=== PATIENT | female | born 1990 | race Two or more races ===

== ENCOUNTER 2020-11-11 01:30 | Emergency (ER) | payer MEDICAID, OTHER ==
[~2020-11-11] VITALS: Ht 154.9 cm; Wt 97.1 kg
[~2020-11-11 01:30] MED LIST: BENZ2AMP3 PO; RISP2TAB5 PO
--- NOTE | 2020-11-11 02:10 | NUR ---
Dr. Holley at bedside for MSE.
--- NOTE | 2020-11-11 02:32 | NUR ---
Xray at bedside.
[2020-11-11] MEDS ORDERED: ONDANSETRON ODT 4 MG TAB.RAPDIS SL ONE ×2 (02:45→03:45)
[2020-11-11] MEDS ORDERED: FAMOTIDINE 20 MG TABLET PO ONE (02:45)
[2020-11-11 02:52] LABS: BASOPHILS # (AUTO) 0.1 K/uL (0.0-8.0); BASOPHILS % (AUTO) 0.9 % (0.0-2.0); EOSINOPHILS # (AUTO) 0.4 K/uL (0.0-0.7); EOSINOPHILS % (AUTO) 3.9 % (0.0-7.0); HEMATOCRIT 44.4 % (31.2-41.9); LYMPHOCYTES # (AUTO) 4.1 K/uL (20.0-40.0); LYMPHOCYTES % (AUTO) 42.5 % (20.5-51.5); MEAN CORPUSCULAR HEMOGLOBIN 27.9 uug (24.7-32.8); MEAN CORPUSCULAR HGB CONC 34 g/dL (32.3-35.6); MEAN CORPUSCULAR VOLUME 82.5 fL (75.5-95.3); MONOCYTES % (AUTO) 10.2 % (0.0-11.0); NEUTROPHILS # (AUTO) 4.1 K/uL (1.8-8.9); NEUTROPHILS % (AUTO) 42.5 % (38.5-71.5); PLATELET COUNT (AUTO) 379 K/uL (179-408); RED BLOOD CELL COUNT(AUTO) 5.38 MIL/uL (3.63-4.92); WHITE BLOOD COUNT (AUTO) 9.6 K/uL (3.8-11.8)
[2020-11-11] MEDS ORDERED: ONDANSETRON ODT 4 MG TAB.RAPDIS ONE ×2 (02:52→03:42)
[2020-11-11] MEDS ORDERED: FAMOTIDINE 20 MG TABLET ONE (02:52)
[2020-11-11 02:54] LABS: CREATININE 1.1 mg/dL (0.6-1.3); POTASSIUM 3.3 mmol/L (3.5-5.1)
[2020-11-11 02:59] LABS: *OCCULT BLOOD STOOL NEGATIVE (NEGATIVE)
[2020-11-11 03:00] LABS: BILIRUBIN,DIRECT 0.1 mg/dL (0.0-0.2); BILIRUBIN,TOTAL 0.3 mg/dL (0.2-1.0); TOTAL PROTEIN, SERUM 8.2 g/dL (6.4-8.2)
[2020-11-11] MEDS ORDERED: METOCLOPRAMIDE HCL 10 MG/2 ML VIAL ONE (04:23)
[2020-11-11] MEDS ORDERED: METOCLOPRAMIDE HCL 10 MG/2 ML VIAL IM ONE (04:30)
--- NOTE | 2020-11-11 06:01 | NUR ---
Patient discharged to home in stable condition. Written and verbal after care instructions given. Patient verbalizes understanding of instructions. Stressed follow up or return to ER for worsening s/s. Patient out of ER with steady gait, no acute signs of distress, VSS, all belongings taken.
[2020-11-11 06:02] VITALS: BP 107/78
== END 2020-11-11 06:02 | disposition home or self-care (01) ==
LOC: ER 01:35
DX: K92.0 Hematemesis (principal); R06.02 Shortness of breath; R94.31 Abnormal electrocardiogram [ECG] [EKG]; Z20.822 Contact with and (suspected) exposure to COVID-19; E87.6 Hypokalemia; F31.9 Bipolar disorder, unspecified; F17.210 Nicotine dependence, cigarettes, uncomplicated; J45.909 Unspecified asthma, uncomplicated
CPT/HCPCS: 36415; 71045; 80048; 80076; 82270; 84702; 85025; 85730; 87426; 93005; 96372; 99285; J2765; A4663; J7030; Q0162